=== PATIENT | female | born 1980 | race Asian ===

== ENCOUNTER 2018-01-15 08:21 | Outpatient (CLI) | payer OTHER ==
--- NOTE | 2018-01-21 14:49 | MMO ---
BILATERAL SCREENING MAMMOGRAM: Date: 01/15/18 COMPARISON: 07/19/16. HISTORY: Annual screening exam. This patient's mammogram was interpreted with the assistance of computer-aided detection. FINDINGS: The breasts are heterogeneously dense. Calcifications in both breasts are stable. There is no dominan t mass, suspicious calcification, or other sign of malignancy. IMPRESSION: BIRADS 2: Benign Finding(s) POS: SEB
== END 2018-01-15 08:22 | disposition home or self-care (01) ==
LOC: SCSMAMMO 08:21
PROVIDERS: ATTEND Family Medicine
DX: Z12.31 Encounter for screening mammogram for malignant neoplasm of breast (principal)
CPT/HCPCS: 77067

== ENCOUNTER 2018-10-02 10:03 | Outpatient (CLI) | payer OTHER ==
--- NOTE | 2018-10-02 10:45 | RAD ---
SINGLE VIEW PELVIS: Comparison: None. History: Left iliac crest pain for a few weeks. FINDINGS: Single view of the pelvis shows no evidence of acute fracture or dislocation. No degenerative change is seen in either hip or in the spine. An IUD is seen in the pelvis. IMPRESSION: Unremarkable exam. POS: SEB
== END 2018-10-02 10:04 | disposition home or self-care (01) ==
LOC: SCSRAD 10:03
PROVIDERS: ATTEND Family Medicine
DX: M89.8X8 Other specified disorders of bone, other site (principal)
CPT/HCPCS: 72170